=== PATIENT | female | born 1960 | race Caucasian/White ===

== ENCOUNTER → 2018-01-02 | Outpatient (CLI) | payer OTHER ==
--- NOTE | 2018-01-02 13:30 | MRI ---
MRI left knee without contrast. Indication: Left knee pain Technique: Multiplanar, multi sequence imaging of the left knee without IV contrast administration. Findings: The extensor mechanism is intact. Non localizing edema is noted anterior to the tibial tube rosity. The patella demonstrates normal position within the femoral trochlea sulcus. There is mild ch ondromalacia of the lateral patellar articular cartilage with small surface osteophytes within the me dial and lateral patellofemoral compartments. No subchondral bone marrow edema. The medial and lateral retinacular complexes are intact. There is a moderate sized suprapatellar join t effusion. There is synovitis and/or several tiny osteochondral body is noted within the lateral asp ect of the suprapatellar pouch. No popliteal fossa cyst. The pes anserine tendons are intact. Poplite us muscle and tendon are normal. The medial femorotibial compartment demonstrates high-grade chondral thinning with small surface oste ophytes. There is no definite subchondral bone marrow signal abnormality identified. The lateral tibi al compartment demonstrates moderate chondral thinning with areas of suspected focal full-thickness f issuring . Small surface osteophytes are noted. No subchondral bone marrow signal abnormality. Cruciate and collateral ligaments are intact. Biceps femoris and iliotibial band are normal. There is marked truncation of the central free edge of the medial meniscal body with horizontally rita ented increased signal within the mildly displaced residual meniscal body seen on coronal image 18. T he lateral meniscus demonstrates no acute tear. No localizing bone marrow signal abnormality within the knee. Impression: 1.Tear with severe fraying of the medial meniscal body central free edge with horizontal oriented tea r extending into the partially extruded residual medial meniscal body. 2. Moderate to severe medial and moderate lateral femorotibial compartment osteoarthrosis with mild p atellofemoral compartment osteoarthrosis. 3. Moderate size suprapatellar joint effusion with either synovitis or multiple small osteochondral b odies present within the lateral aspect of the suprapatellar pouch. Four. Reported By:
== END | disposition home or self-care (01) | DRG 554 ==
LOC: RAD 08:18
PROVIDERS: ATTEND Orthopaedic Surgery
DX: M17.12 Unilateral primary osteoarthritis, left knee (principal); S83.242A Other tear of medial meniscus, current injury, left knee, initial encounter; X58.XXXA Exposure to other specified factors, initial encounter
CPT/HCPCS: 73721